=== PATIENT | male | born 1980 | race African-American/Black ===

== ENCOUNTER 2021-01-30 07:52 | Emergency (ER) | payer SELFPAY | END 2021-01-30 10:20 | disposition home or self-care (01) | LOC: ERS 07:52 | DX: K64.4 Residual hemorrhoidal skin tags (principal); F17.210 Nicotine dependence, cigarettes, uncomplicated | CPT/HCPCS: 99283 ==

== ENCOUNTER 2021-11-16 23:01 | Emergency (ER) | payer SELFPAY ==
[~2021-11-16 23:01] MED LIST: Iopamidol-370 76% 500 ML 1 ML ONE
[2021-11-16 23:27] LABS: #Basophils 0.1 thou/uL (0.0-0.2); #Eosinphils 0.4 thou/uL (0.0-0.7); #Lymphocytes 3.6 thou/uL (1.20-3.40); #Monocytes 0.5 thou/uL (0.11-0.59); #Neutrophils 3.3 thou/uL (1.40-6.50); %Basophils 1.1 % (0.0-1.0); %Eosinophils 5.5 % (0.0-10.0); %Lymphocytes 45.2 % (21.0-51.0); %Monocytes 6.8 % (0.0-10.0); %Neutrophils 41.3 % (42.0-75.0); Hemoglobin 13.8 g/dL (14.0-18.0); Mean Corpuscular HGB CONC 31.2 g/dL (32.0-36.0); Mean Corpuscular Hemoglobin 23.6 pg (27.0-31.0); Mean Corpuscular Volume 75.7 fL (78.0-98.0); Platelet Count 210 thou/uL (130-400); RBC Distribution Width 14.6 % (11.5-14.5); Red Blood Cell (RBC) Count 5.84 mill/uL (4.70-6.10); White Blood Cell (WBC) Count 7.9 thou/uL (4.8-10.8)
[2021-11-16 23:56] LABS: Anion Gap 13 mmol/L (10-20); BUN (Urea Nitrogen) 20 mg/dL (8.9-20.6); Calc. Creatinine Clearance 0 mL/min (70-130); Carbon Dioxide 26 mmol/L (22-29); Chloride 105 mmol/L (98-107); Potassium 3.6 mmol/L (3.5-5.1); Sodium 140 mmol/L (136-145)
[2021-11-16 23:57] LABS: ALT (SGPT) 13 U/L (8-55); AST (SGOT) 18 U/L (5-34); Acetaminophen Less than 10.0 mcg/mL (10.0-30.0); Albumin 3.9 g/dL (3.5-5.0); Alcohol Less than 10 mg/dL (Less than 10); Alkaline Phosphatase 61 U/L (40-110); Bilirubin, Total 0.3 mg/dL (0.2-1.2); Calcium 8.8 mg/dL (7.8-10.44); Estimated GFR 60; Globulin 2.5 g/dL (2.4-3.5); Glucose 112 mg/dL (70-105); Protein, Total 6.4 g/dL (6.0-8.3); Salicylate Less than 8.0 mg/dL (15.0-30.0)
[2021-11-17] MEDS ORDERED: Morphine 10 MG/ML VIAL ONE (01:20)
== END 2021-11-17 01:24 | disposition home or self-care (01) ==
LOC: ERS 23:01
DX: S01.512A Laceration without foreign body of oral cavity, initial encounter (principal); M25.552 Pain in left hip; M79.642 Pain in left hand; M54.50 Low back pain, unspecified; V43.52XA Car driver injured in collision with other type car in traffic accident, initial encounter
CPT/HCPCS: 36415; 70450; 71260; 72125; 74177; 80053; 80307; 83690; 85025; 93005; 96374; J2270; Q9967